=== PATIENT | female | born 1940 | race Caucasian/White ===

== ENCOUNTER 2019-02-01 20:01 | Emergency (ER) | payer OTHER, MEDICARE ==
[2019-02-01 20:24] VITALS: BP 197/76; PULSE 74; TEMP 97.7; BMI 19.5
--- NOTE | 2019-02-01 21:15 | PDOC ---
Documentation entered by Meron Campbell SCRIBE, acting as scribe for Julian Kinney MD. Julian Kinney MD: This documentation has been prepared by the Adrian del cid Brenda, SCRIBE, under my direction and personally reviewed by me in its entirety. I confirm that the documentation accurately reflects all work , treatment, procedures, and medical decision making performed by me. History of Present Illness - General Chief Complaint: Blood Sugar Problem Stated Complaint: LOW BLOOD SUGAR History Source: Sibling Exam Limitations: No Limitations - History of Present Illness Initial Comments: 02/01/19 21:11 The patient is a 78 year old female, with a significant PMH of DM and hypotension, who presents to the emergency department [facility], with lightheadedness and confusion due to low blood sugar. As per sister, on the bedside, the patient was in emotional distress, at which time the sister had left her alone and when she came back, the patient was dazed and confused, prompting the sister to call EMS. As per family, the patient has been eating regular meals today, and took her insulin regularly. The patient reports having sugars up to 300 today, at which point she took her medication, without meals and it lowered to 200, where she took her medication again. She also notes that , she is usually constipated, which she takes miralax for, however she had watery diarrhea a few days ago, and went back to being constipated. As per EMS< her sugar was down to 20, at which point they gave her dextrose and it lowered to the 100s. The patient denies chest pain, shortness of breath, headache and dizziness. Denies fever, chills, nausea, vomiting, diarrhea and constipation. Denies dysuria, frequency, urgency and hematuria. PAST MEDICAL HISTORY: DM, Hypotension and constipation. Recent hospitalization for hyperglycemia and hypertension. PAST SURGICAL HISTORY: 2 stents (5 years and 2 years ago) FAMILY HISTORY: no pertinent history SOCIAL HISTORY: History of tobacco use, current use. MEDICATIONS: reviewed ALLERGIES: As per nursing notes PCP:Dr. Porter General: No fevers or chills, no weakness, no weight loss HEENT: (+) Lightheadedness. (+) Confusion. No change in vision. No sore throat, . No ear pain CardioVascular: No chest pain or shortness of breath Respiratory:No cough, or wheezing. Gastrointestinal: no nausea, vomiting, diarrhea or constipation, No rectal bleeding Genitourinary: No dysuria, hematuria, or frequency Musculoskeletal: No joint or muscle pain or swelling Neurologic: No headache, vertigo, dizziness or loss of consciousness Psychiatric: nor depression Skin: No rashes or easy bruising Endocrine: no increased thirst or abnormal weight change Allergic: no skin or latex allergy All other systems reviewed and normal General: Well-nourished well-developed individual, no acute distress HEENT: Throat: Normal, tonsils normal, no erythema or exudate Neck: Supple, no meningeal signs, no lymphadenopathy Eyes::Pupils equal reactive and round, extraocular motion intact Chest: Nontender to palpation Cardiac: S1-S2 normal, regular rate and rhythm, no murmurs rubs or gallops Respiratory: Lungs clear to auscultation bilateral Abdomen: Soft, nondistended, normal bowel sounds, nontender to palpation diffusely Extremities: Warm, dry, no cyanosis, clubbing, or edema Skin: No rashes Neuro: Alert and oriented x3, nonfocal exam, grossly intact, normal gait Psych: Normal mood and affect 02/01/19 21:12 Assessment and plan: This is a 78-year-old female who comes in with a hypoglycemic episode. Patient became confused at home and EMS was called when they got there her sugars were in the 20s they gave her dextrose with improvement of symptoms and brought her in for evaluation. Patient said her sugars have been running high so she took extra Levemir and NovoLog at 3:30 this afternoon. sugar here in the ED was 85 patient ate a full meal felt much better. It is now been almost 7 hours since she took her insulin the NovoLog will have peaked and worn off the Levemir will have peaked so repeat sugar was patient was discharged marichuy. Past History - Past Medical History Allergies/Adverse Reactions: Allergies Allergy/AdvReac Type Severity Reaction Status Date / Time No Known Allergies Allergy Verified 02/01/19 20:02 Home Medications: Ambulatory Orders Atorvastatin Ca [Lipitor] 80 mg PO HS 02/01/19 Bupropion HCl [Wellbutrin Xl -] 150 mg PO DAILY 02/01/19 Bupropion HCl [Wellbutrin Xl -] 300 mg PO DAILY 02/01/19 Calcium Carbonate [Calcium] 600 mg PO BID 02/01/19 Clonazepam 1 mg PO BID 02/01/19 Insulin (Levemir) [Levemir Vial] 0 unit SQ DAILY 02/01/19 Insulin (Novolog) [Novolog] 0 units SQ BID 02/01/19 Labetalol HCl [Normodyne -] 100 mg PO BID 02/01/19 Zolpidem Tartrate [Ambien] 10 mg PO HS 02/01/19 *Physical Exam - Vital Signs Last Vital Signs Temp Pulse Resp BP Pulse Ox 97.7 F 74 17 197/76 H 99 02/01/19 20:02 02/01/19 20:02 02/01/19 20:02 02/01/19 20:02 02/01/19 20:02 ED Treatment Course - ADDITIONAL ORDERS Additional order review: Laboratory Results 02/01/19 20:10 POC Glucometer 85 02/01/19 20:10 POC Glucometer 85 *DC/Admit/Observation/Transfer Diagnosis at time of Disposition: Hypoglycemia - Discharge Dispostion Disposition: HOME Condition at time of disposition: Stable Decision to Admit order: No - Referrals Referrals: Zachary Porter MD [Primary Care Provider] - - Patient Instructions Printed Discharge Instructions: DI for Hypoglycemia Additional Instructions: Return to the emergency department immediately with ANY new, persistent or worsening symptoms. Continue any medications as previously prescribed by your physician. You should follow up with your primary doctor as soon as possible regarding today's emergency department visit. . Please make sure your doctor reviews the results of your emergency evaluation. Thank you for coming to the Emergency Department today for your care. It was a pleasure to see you today. Please note that your evaluation is INCOMPLETE until you follow-up with your doctor. - Post Discharge Activity
--- NOTE | 2019-02-02 11:49 | EKG ---
Test Reason : Blood Pressure : / mmHG Vent. Rate : 074 BPM Atrial Rate : 074 BPM P-R Int : 170 ms QRS Dur : 088 ms QT Int : 406 ms P-R-T Axes : 067 069 091 degrees QTc Int : 450 ms NORMAL SINUS RHYTHM POSSIBLE LEFT ATRIAL ENLARGEMENT ANTEROSEPTAL INFARCT , AGE UNDETERMINED ABNORMAL ECG NO PREVIOUS ECGS AVAILABLE Confirmed by ANGELICA BENTLEY, SUSIE ([id number]) on 02/02/2019 11:49:26 AM Referred By: DR CLARK Confirmed By:SUSIE DOMINGUEZ MD
== END 2019-02-01 21:20 | disposition home or self-care (01) ==
LOC: FER 20:01
DX: E11.649 Type 2 diabetes mellitus with hypoglycemia without coma (principal); I95.9 Hypotension, unspecified
CPT/HCPCS: 82962; 93005; 99281-25

== ENCOUNTER 2019-02-28 09:45 | Observation (INO) | payer OTHER, MEDICARE ==
--- NOTE | 2019-02-28 10:12 | PDOC ---
History of Present Illness <Larisa Brothers - Last Filed: 02/28/19 13:28> - History of Present Illness Initial Comments: Carolyne Maldonado is a 78yo woman with a PMH of IDDM and hypotension who presents following a fall at home overnight; she was also noted to be hypoglycemic to the 50's. She reports that she woke up overnight to use the bathroom, which is nearby her bed. She successfully walked to the bathroom, but she states that she woke up on the floor sometime later on the floor. She does not remember falling and is not sure what happened. She started calling for her sister for help; the sister called EMS immediately. When EMS arrived, they noted that Ms Maldonado's blood sugar was in the 50's. She was given peanut butter and juice with improvement in her glucose to 137 on arriaal to the ED. Ms Maldonado states that she does not have any head pain or any other apparent injury from her fall. She is not sure how long she was on the ground, but she reports that she needed to use the bathroom again when she woke up, so she thinks it must have been a significant amount of time. She additionally reports that she has been shivering since she woke, though she thinks this might be because she was chilled from being on the floor. She denies any recent cough, congestion, fever, nausea/vomiting, or changes in bowel habits but she does note that she has frequent urination. This has been for several months but she has urgency over the past few weeks which is new. <Citlali Navarrete - Last Filed: 02/28/19 16:01> - General Chief Complaint: Blood Sugar Problem Stated Complaint: LOW BLOOD SUGAR Time Seen by Provider: 02/28/19 10:05 Past History <Larisa Brothers - Last Filed: 02/28/19 13:28> - Past Medical History COPD: No Diabetes: Yes - Suicide/Smoking/Psychosocial Hx Smoking History: Former smoker Have you smoked in the past 12 months: No If you are a former smoker, when did you quit?: 30YRS Hx Alcohol Use: No Drug/Substance Use Hx: No <Citlali Navarrete - Last Filed: 02/28/19 16:01> - Past Medical History Allergies/Adverse Reactions: Allergies Allergy/AdvReac Type Severity Reaction Status Date / Time No Known Allergies Allergy Verified 02/28/19 10:15 Home Medications: Ambulatory Orders Atorvastatin Ca [Lipitor] 80 mg PO HS 02/01/19 Calcium Carbonate [Calcium] 600 mg PO BID 02/01/19 Clonazepam 1 mg PO BID 02/01/19 Insulin (Levemir) [Levemir Vial] 10 unit SQ DAILY 02/01/19 Insulin (Novolog) [Novolog] 0 units SQ ACHS 02/01/19 Labetalol HCl [Normodyne -] 100 mg PO BID 02/01/19 Zolpidem Tartrate [Ambien] 10 mg PO HS 02/01/19 Aspirin [Aspirin EC] 81 mg PO DAILY 02/28/19 Bupropion HCl [Bupropion HCl Sr] 150 mg PO BID 02/28/19 Insulin Detemir [Levemir Flextouch] 11 unit SQ HS 02/28/19 Sertraline HCl [Zoloft] 25 mg PO DAILY 02/28/19 Review of Systems - Review of Systems Comments:: General: No fevers, no chills, no weight or appetite change, no malaise HEENT: No changes in vision, no changes in hearing, no congestion, no sore throat CV: No chest pain, no palpitations, no LE edema Pulm: No SOB, no cough, no wheezing GI: No nausea or vomiting, no change in bowel habits, no melena : No frequency, no urgency, no dysuria Musc: No back pain, no joint swelling, no recent injury Skin: No rash, no lesions, no erythema Endo: No excessive thirst, no heat/cold intolerance Heme: No unusual bruising or bleeding, no swollen glands Neuro: + syncope, no numbness/tingling, no focal weakness Vasc: No claudication Psych: No recent change in mood, no SI or HI <Citlali Navarrete - Last Filed: 02/28/19 16:01> *Physical Exam - Vital Signs Last Vital Signs Temp Pulse Resp BP Pulse Ox 97.2 F L 86 17 168/55 L 99 02/28/19 12:47 02/28/19 12:47 02/28/19 12:47 02/28/19 12:47 02/28/19 12:47 <Larisa Brothers - Last Filed: 02/28/19 13:28> - Physical Exam Comments: General: In no acute distress. +shivering HEENT: No visible trauma, PERRL, EOMI, MMM, voice normal, normal neck ROM, no posterior neck TTP Cards: RRR, no murmur appreciated Pulm: Comfortable on room air, clear to auscultation bilaterally Abd: Soft, nontender, nondistended Ext: Atraumatic. No LE edema. ROM intact. Strength 5/5 and equal bilaterally Vasc: Extremities WWP. Palpable radial and pedal pulses bilaterally Skin: Normal color, no rashes or lesions Neuro: A&Ox3, CN grossly intact, normal speech, motor/sensory grossly intact and symmetric Psych: Mood appropriate to situation <Citlali Navarrete - Last Filed: 02/28/19 16:01> ED Treatment Course - LABORATORY CBC & Chemistry Diagram: 02/28/19 12:15 02/28/19 12:15 - ADDITIONAL ORDERS Additional order review: Laboratory Results 02/28/19 02/28/19 02/28/19 12:15 12:15 12:15 PT with INR 11.5 INR 1.03 PTT (Actin FS) 23.9 L Sodium 139 Potassium 4.5 Chloride 99 Carbon Dioxide 29 Anion Gap 11 BUN 30.0 H Creatinine 0.9 Est GFR (CKD-EPI)AfAm 71.48 Est GFR (CKD-EPI)NonAf 61.67 POC Glucometer Random Glucose 231 H Calcium 9.4 Total Bilirubin 1.1 H AST 35 ALT 30 Alkaline Phosphatase 69 Total Protein 7.1 Albumin 4.4 Urine Color Urine Appearance Urine pH Urine Protein Urine Glucose (UA) Urine Ketones Urine Blood Urine Nitrite Urine Bilirubin Urine Urobilinogen Ur Leukocyte Esterase Urine RBC Urine WBC Ur Transition Epith Cell Urine Bacteria 02/28/19 02/28/19 11:20 10:00 PT with INR INR PTT (Actin FS) Sodium Potassium Chloride Carbon Dioxide Anion Gap BUN Creatinine Est GFR (CKD-EPI)AfAm Est GFR (CKD-EPI)NonAf POC Glucometer 132 Random Glucose Calcium Total Bilirubin AST ALT Alkaline Phosphatase Total Protein Albumin Urine Color Yellow Urine Appearance Clear Urine pH 7.0 Urine Protein Trace Urine Glucose (UA) Negative Urine Ketones Trace Urine Blood Trace-intact Urine Nitrite Negative Urine Bilirubin Negative Urine Urobilinogen 1.0 Ur Leukocyte Esterase Negative Urine RBC 2-5 Urine WBC 0-2 Ur Transition Epith Cell Few Urine Bacteria Few 02/28/19 02/28/19 12:15 10:00 RBC 4.04 MCV 93.2 MCHC 33.3 RDW 12.5 MPV 7.7 Neutrophils % 85.2 H Lymphocytes % 9.6 Monocytes % 4.4 Eosinophils % 0.2 Basophils % 0.6 POC Glucometer 132 <Larisa Brothers - Last Filed: 02/28/19 13:28> - LABORATORY CBC & Chemistry Diagram: 02/28/19 12:15 02/28/19 12:15 - ADDITIONAL ORDERS Additional order review: Laboratory Results 02/28/19 10:00 POC Glucometer 132 02/28/19 10:00 POC Glucometer 132 <Citlali Navarrete - Last Filed: 02/28/19 16:01> Medical Decision Making - Medical Decision Making 02/28/19 10:41 Carolyne Maldonado is a 78yo woman with a PMH of IDDM and hypotension who presents following apparent syncope and an unwitnessed fall overnight. She was also noted to be hypoglycemic to the 50's on EMS arrival. She currently denies any injury or symptoms other than shivering. - Apparent syncopal episode, possibly due to hypoglycemia. - Currently shivering either due to mild hypothermia or possibly sepsis given new urinary complaint - Septic workup sent - CT head to evaluate for intracranial injury 02/28/19 12:17 - UA negative - CXR and CT completed. No acute abnormalities noted - Labs drawn, sent. Results pending 02/28/19 13:51 - Labs reviewed. Notable for negative but detectable trop at 0.03. - Otherwise no concerning abnormalities. Glucose now over 200. - UA negative - Plan to admit for syncope Discussed with Dr Brothers. Citlali Navarrete PGY2 <Citlali Navarrete - Last Filed: 02/28/19 16:01> *DC/Admit/Observation/Transfer - Discharge Dispostion Decision to Admit order: Yes <Larisa Brothers - Last Filed: 02/28/19 13:28> <Citlali Navarerte - Last Filed: 02/28/19 16:01> Diagnosis at time of Disposition: Syncope, Hypoglycemia - Discharge Dispostion Condition at time of disposition: Good - Referrals Referrals: Zachary Porter MD [Primary Care Provider] - - Patient Instructions - Post Discharge Activity
--- NOTE | 2019-02-28 10:38 | PDOC ---
Attending Attestation - Resident Resident Name: AlejandrorosioCitlali - ED Attending Attestation I have performed the following: I have examined & evaluated the patient, The case was reviewed & discussed with the resident, I agree w/resident's findings & plan, Exceptions are as noted - HPI HPI: 02/28/19 12:12 78 yo F w h/o htn, DM, prior orthostatic hypotension, here with syncopal episode. pt states she got up to go to bathroom in middle of night, subsequently awoke on the floor this am, unsure of exact time. was unable to get up. normally walks with a cane. felt disoriented. called out for her sister whom she lives with and her sister came, called ambulance, on ambulance arrival, pt sugar found to be 50. was given juice by EMS. denies precipitating chest pain or palpitations. unsure of how long she was on the floor. states last pm prior to going to bed sugar was 118. pt states she has lost a lot of weight over last few months while she was hospitalized and in [facility], is currently staying with her sister until she is scheduled. to go home in one week. no fever, but does have chills. denies recent focal weakness. states also has h/o orthostatic hypotension and her labetalol was changed recently from 200 bid to 100 bid. no change to vision or speech. denies urinary sxs. no n/v. 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 had stress test many years ago. no h/o mi or cva. father with mi in his 40's meds: Atorvastatin Ca [Lipitor] 80 mg PO HS 02/01/19 Bupropion HCl [Wellbutrin Xl -] 150 mg PO DAILY 02/01/19 Bupropion HCl [Wellbutrin Xl -] 300 mg PO DAILY 02/01/19 Calcium Carbonate [Calcium] 600 mg PO BID 02/01/19 Clonazepam 1 mg PO BID 02/01/19 Insulin (Levemir) [Levemir Vial] 0 unit SQ DAILY 02/01/19 Insulin (Novolog) [Novolog] 0 units SQ BID 02/01/19 Labetalol HCl [Normodyne -] 100 mg PO BID 02/01/19 Zolpidem Tartrate [Ambien] 10 mg PO HS 02/01/19 02/28/19 12:18 - Physicial Exam PE: 02/28/19 12:19 awake alert lungs clear bilat heart rrr no mrg abd soft nt nd ext wwp no edema. no calf tenderness. nuero speech clear. CN ii - XII intact. strength upper eext 5/5 lower ext right leg 4+/ 5, left leg 5/5. sensatio intact throughout. - Medical Decision Making 02/28/19 10:37 78 yo F with h/o DM here with hypoglycemic episode. syncope. unclear if syncope related to low blood sugar. differential orthostatic hypotension, vasovagal, dysrhtymia, dehdyration, anemia. infection such as uti. plan cxr ekg labs trop ua, iv hydration. pt hypoglycemic prior to arrival. is on long acting insuline. will require monitoring for hypoglycemia and syncope. second hypoglycemic episode pt was seen for same in january 2019. 02/28/19 12:19 02/28/19 13:53 pt labs unremarakble. cxr negative. ekg with left axis, mild LVH otherwise no st elevation or depression. ua negative for infection. plan to admit for hypoglycemia as pt on long acting agent. and concerns for syncope. Heart Score/ECG Review #1 General ECG Interpretation: Sinus Rhythm, Normal Rate (78), Normal Intervals, No acute ischemic changes - [place]: Left [place] Deviation NIH Stroke Scale - Initial Evaluation Level of consciousness: Alert Ask patient the month and their age: Answers both correctly Ask patient to open & close eyes; make fist and let go: Obeys both correctly Best gaze (horizontal eye movement): Normal Visual field testing: No visual field loss Facial paresis (Show teeth/raise eyebrows/close eyes tight): Normal symmetrical movement Motor Function: Left Arm: Normal Motor Function: Right Arm: Normal (extends arm 90 (or 45) degrees for 10 seconds without drift Motor Function: Left Leg: Normal (extends leg 30 degrees for 5 seconds without drift) Motor Function: Right Leg: Drift Limb Ataxia: No ataxia Sensory(Use pinprick test arms,legs,trunk,face/side to side): Normal Best language (Describe picture, name items, read sentences): No Aphasia Dysarthria (read several words): Normal articulation Extinction and Inattention: No abnormality - Total Score NIH Stroke Scale Score: 1
[2019-02-28 11:45] LABS: EPITHELIAL CELLS FEW /hpf
[2019-02-28 12:45] LABS: BASO % 0.6 % (0-2.0); EOS % 0.2 % (0-4.5); HEMATOCRIT 37.7 % (32.4-45.2); HEMOGLOBIN 12.5 GM/dl (10.7-15.3); LYMPH % 9.6 % (8-40); MCHC 33.3 g/dl (32.0-36.0); MEAN CELL VOLUME 93.2 fl (80-96); MEAN PLT VOLUME 7.7 fl (7.5-11.1); MONO % 4.4 % (3.8-10.2); NEUT % 85.2 % (42.8-82.8); PLATELET COUNT 244 K/MM3 (134-434); RBC 4.04 M/mm3 (3.60-5.2); RDW 12.5 % (11.6-15.6); WHITE BLOOD COUNT 6.9 K/mm3 (4.0-10.8)
[2019-02-28 12:51] LABS: ALBUMIN 4.4 g/dl (3.4-5.0); BILIRUBIN,TOTAL 1.1 mg/dl (0.2-1); CALCIUM 9.4 mg/dl (8.5-10); CREATININE 0.9 mg/dl (0.55-1.3); POTASSIUM 4.5 mmol/L (3.5-5.1); TOT PROT 7.1 g/dl (6.4-8.2)
[2019-02-28 12:59] LABS: INR 1.03 (0.82-1.09); PROTHROMBIN TIME (PATIENT) 11.5 SEC (10.2-13.0)
[2019-02-28 13:34] LABS: VENOUS PC02 54.7 mmHg (38-52); VENOUS PH 7.36 (7.31-7.41)
[2019-02-28 13:36] LABS: VENOUS PO2 < 49 mmHg (28-48)
--- NOTE | 2019-02-28 14:10 | HP ---
CHIEF COMPLAINT: Syncope PCP: Dr. Zachary Porter HISTORY OF PRESENT ILLNESS: This is a 78 year-old female with a PMH significant for CAD s/p stents x 2, Type II IDDM, and orthostatic hypotension. Presented to the ED today after waking up on her bedroom floor. Patient did a fingerstick before bedtime and it was slightly low for her 118. She considered drinking some juice, but deferred and went to bed. She woke up during the night, went to the bathroom, urinated, and the next thing she remembers is waking up on the floor. She does not remember falling and she does not know how long she was on the floor. She called to her sister for help. The sister called EMS and when EMS arrived, patient's blood sugar was in the 50s. She was given peanut butter and juice with improvement in her glucose to 137 on arrival to the ED. Patient was seen in [facility] on 02/01/19 for a similar episode and was found to be hypoglycemic. Patient denies recent illness. Denies fever, sweats, chills. Denies nausea, vomiting, diarrhea. Complains of frequent urination for several months, and urgency for several weeks. ER course was notable for: (1) Troponin neg x 1 (2) FS 137 on arrival Recent Travel: No PAST MEDICAL HISTORY: Type II IDDM Orthostatic hypotension PAST SURGICAL HISTORY: Social History: Smoking: Alcohol: Drugs: Family History: Allergies No Known Allergies Allergy (Verified 02/28/19 10:15) HOME MEDICATIONS: Home Medications Medication Instructions Recorded Atorvastatin Ca [Lipitor] 80 mg PO HS 02/01/19 Calcium Carbonate [Calcium] 600 mg PO BID 02/01/19 Clonazepam 1 mg PO BID 02/01/19 Insulin (Levemir) [Levemir Vial] 10 unit SQ DAILY 02/01/19 Insulin (Novolog) [Novolog] 0 units SQ ACHS 02/01/19 Labetalol HCl [Normodyne -] 100 mg PO BID 02/01/19 Zolpidem Tartrate [Ambien] 10 mg PO HS 02/01/19 Aspirin [Aspirin EC] 81 mg PO DAILY 02/28/19 Bupropion HCl [Bupropion HCl Sr] 150 mg PO BID 02/28/19 Insulin Detemir [Levemir Flextouch] 11 unit SQ HS 02/28/19 Sertraline HCl [Zoloft] 25 mg PO DAILY 02/28/19 REVIEW OF SYSTEMS CONSTITUTIONAL: Absent: fever, chills, diaphoresis, generalized weakness, malaise, loss of appetite, weight change HEENT: Absent: rhinorrhea, nasal congestion, throat pain, throat swelling, difficulty swallowing, mouth swelling, ear pain, eye pain, visual changes CARDIOVASCULAR: Absent: chest pain, syncope, palpitations, irregular heart rate, lightheadedness , peripheral edema RESPIRATORY: Absent: cough, shortness of breath, dyspnea with exertion, orthopnea, wheezing, stridor, hemoptysis GASTROINTESTINAL: Absent: abdominal pain, abdominal distension, nausea, vomiting, diarrhea, constipation, melena, hematochezia GENITOURINARY: Absent: dysuria, frequency, urgency, hesitancy, hematuria, flank pain, genital pain MUSCULOSKELETAL: Absent: myalgia, arthralgia, joint swelling, back pain, neck pain SKIN: Absent: rash, itching, pallor HEMATOLOGIC/IMMUNOLOGIC: Absent: easy bleeding, easy bruising, lymphadenopathy, frequent infections ENDOCRINE: Absent: unexplained weight gain, unexplained weight loss, heat intolerance, cold intolerance NEUROLOGIC: Absent: headache, focal weakness or paresthesias, dizziness, unsteady gait, seizure, mental status changes, bladder or bowel incontinence PSYCHIATRIC: Absent: anxiety, depression, suicidal or homicidal ideation, hallucinations. PHYSICAL EXAMINATION Vital Signs - 24 hr 02/28/19 02/28/19 02/28/19 09:55 10:58 12:47 Temperature 97.4 F L 96.5 F L 97.2 F L Pulse Rate 75 Pulse Rate [ 86 Apical] Respiratory 18 17 Rate Blood Pressure 220/80 H Blood Pressure 168/55 L [Right Arm] O2 Sat by Pulse 99 Oximetry (%) 02/28/19 13:30 Temperature Pulse Rate Pulse Rate [ 88 Apical] Respiratory 16 Rate Blood Pressure Blood Pressure 109/76 [Right Arm] O2 Sat by Pulse 99 Oximetry (%) GENERAL: Awake, alert, and fully oriented, in no acute distress. HEAD: Normal with no signs of trauma. EYES: Pupils equal, round and reactive to light, extraocular movements intact, sclera anicteric, conjunctiva clear. No lid lag. EARS, NOSE, THROAT: Ears normal, nares patent, oropharynx clear without exudates. Moist mucous membranes. NECK: Normal range of motion, supple without lymphadenopathy, JVD, or masses. LUNGS: Breath sounds equal, clear to auscultation bilaterally. No wheezes, and no crackles. No accessory muscle use. HEART: Regular rate and rhythm, normal S1 and S2 without murmur, rub or gallop. ABDOMEN: Soft, nontender, not distended, normoactive bowel sounds, no guarding, no rebound, no masses. No hepatomegaly or splenomegaly. MUSCULOSKELETAL: Normal range of motion at all joints. No bony deformities or tenderness. No CVA tenderness. UPPER EXTREMITIES: 2+ pulses, warm, well-perfused. No cyanosis. No clubbing. No peripheral edema. LOWER EXTREMITIES: 2+ pulses, warm, well-perfused. No calf tenderness. No peripheral edema. NEUROLOGICAL: Cranial nerves II-XII intact. Normal speech. Normal gait. PSYCHIATRIC: Cooperative. Good eye contact. Appropriate mood and affect. SKIN: Warm, dry, normal turgor, no rashes or lesions noted, normal capillary refill. Laboratory Results - last 24 hr 02/28/19 02/28/19 02/28/19 10:00 10:56 11:20 WBC RBC Hgb Hct MCV MCH MCHC RDW Plt Count MPV Absolute Neuts (auto) Neutrophils % Lymphocytes % Monocytes % Eosinophils % Basophils % PT with INR INR PTT (Actin FS) VBG pH 7.36 POC VBG pCO2 54.7 H POC VBG pO2 < 49 H VBG HCO3 29.8 H VBG O2 Sat (Yonis) 30.1 L VBG Base Excess 3.6 H Sodium Potassium Chloride Carbon Dioxide Anion Gap BUN Creatinine Est GFR (CKD-EPI)AfAm Est GFR (CKD-EPI)NonAf POC Glucometer 132 Random Glucose Hemoglobin A1c % Lactic Acid Calcium Total Bilirubin AST ALT Alkaline Phosphatase Creatine Kinase Troponin I Total Protein Albumin Urine Color Yellow Urine Appearance Clear Urine pH 7.0 Urine Protein Trace Urine Glucose (UA) Negative Urine Ketones Trace Urine Blood Trace-intact Urine Nitrite Negative Urine Bilirubin Negative Urine Urobilinogen 1.0 Ur Leukocyte Esterase Negative Urine RBC 2-5 Urine WBC 0-2 Ur Transition Epith Cell Few Urine Bacteria Few 02/28/19 02/28/19 02/28/19 12:15 12:15 12:15 WBC 6.9 RBC 4.04 Hgb 12.5 Hct 37.7 MCV 93.2 MCH 31.0 MCHC 33.3 RDW 12.5 Plt Count 244 MPV 7.7 Absolute Neuts (auto) 5.9 Neutrophils % 85.2 H Lymphocytes % 9.6 Monocytes % 4.4 Eosinophils % 0.2 Basophils % 0.6 PT with INR INR PTT (Actin FS) 23.9 L VBG pH POC VBG pCO2 POC VBG pO2 VBG HCO3 VBG O2 Sat (Yonis) VBG Base Excess Sodium 139 Potassium 4.5 Chloride 99 Carbon Dioxide 29 Anion Gap 11 BUN 30.0 H Creatinine 0.9 Est GFR (CKD-EPI)AfAm 71.48 Est GFR (CKD-EPI)NonAf 61.67 POC Glucometer Random Glucose 231 H Hemoglobin A1c % Lactic Acid Calcium 9.4 Total Bilirubin 1.1 H AST 35 ALT 30 Alkaline Phosphatase 69 Creatine Kinase Troponin I Total Protein 7.1 Albumin 4.4 Urine Color Urine Appearance Urine pH Urine Protein Urine Glucose (UA) Urine Ketones Urine Blood Urine Nitrite Urine Bilirubin Urine Urobilinogen Ur Leukocyte Esterase Urine RBC Urine WBC Ur Transition Epith Cell Urine Bacteria 02/28/19 02/28/19 02/28/19 12:15 12:15 12:15 WBC RBC Hgb Hct MCV MCH MCHC RDW Plt Count MPV Absolute Neuts (auto) Neutrophils % Lymphocytes % Monocytes % Eosinophils % Basophils % PT with INR 11.5 INR 1.03 PTT (Actin FS) VBG pH POC VBG pCO2 POC VBG pO2 VBG HCO3 VBG O2 Sat (Yonis) VBG Base Excess Sodium Potassium Chloride Carbon Dioxide Anion Gap BUN Creatinine Est GFR (CKD-EPI)AfAm Est GFR (CKD-EPI)NonAf POC Glucometer Random Glucose Hemoglobin A1c % Lactic Acid 1.4 Calcium Total Bilirubin AST ALT Alkaline Phosphatase Creatine Kinase Troponin I < 0.03 Total Protein Albumin Urine Color Urine Appearance Urine pH Urine Protein Urine Glucose (UA) Urine Ketones Urine Blood Urine Nitrite Urine Bilirubin Urine Urobilinogen Ur Leukocyte Esterase Urine RBC Urine WBC Ur Transition Epith Cell Urine Bacteria 02/28/19 02/28/19 12:15 12:15 WBC RBC Hgb Hct MCV MCH MCHC RDW Plt Count MPV Absolute Neuts (auto) Neutrophils % Lymphocytes % Monocytes % Eosinophils % Basophils % PT with INR INR PTT (Actin FS) VBG pH POC VBG pCO2 POC VBG pO2 VBG HCO3 VBG O2 Sat (Yonis) VBG Base Excess Sodium Potassium Chloride Carbon Dioxide Anion Gap BUN Creatinine Est GFR (CKD-EPI)AfAm Est GFR (CKD-EPI)NonAf POC Glucometer Random Glucose Hemoglobin A1c % 7.5 H Lactic Acid Calcium Total Bilirubin AST ALT Alkaline Phosphatase Creatine Kinase 234 H Troponin I Total Protein Albumin Urine Color Urine Appearance Urine pH Urine Protein Urine Glucose (UA) Urine Ketones Urine Blood Urine Nitrite Urine Bilirubin Urine Urobilinogen Ur Leukocyte Esterase Urine RBC Urine WBC Ur Transition Epith Cell Urine Bacteria ASSESSMENT/PLAN This is a 78 year-old female with a PMH significant for CAD s/p stents x 2, Type II IDDM, and orthostatic hypotension. Syncope --troponin neg x 1, two pending; ECG: ; telemetry monitoring; echo ordered --CT head unremarkable --afebrile, no leukocytosis; CXR unremarkable; UA negative; cultures pending ; observe off antibiotics Low volume state --BUN elevated --CPK elevated --check orthostatics --IV fluids if indicated Type II IDDM --has had several recent episodes of hypoglycemia --A1C 7.5 --Novolog sliding scale coverage Coronary artery disease s/p stents --continue ASA, Lipitor, labetolol Depression --continue Wellbutrin, clonazepam, sertraline FEN Fluids: Electrolytes: replete as indicated Nutrition: diabetic DVT prophylaxis: subq heparin Physical therapy Dispo: continues to require observation. Full code. Visit type - Emergency Visit Emergency Visit: Yes ED Registration Date: 02/28/19 Care time: The patient presented to the Emergency Department on the above date and was hospitalized for further evaluation of their emergent condition. - New Patient This patient is new to me today: Yes Date on this admission: 03/01/19 - Critical Care Critical Care patient: No
[2019-02-28] MEDS: INSULIN (NOVOLOG) ASPART 100 UNITS/ML 10ML VIAL SQ SCH ×2 (16:30→21:46)
[2019-02-28 16:54] VITALS: BMI 18.6
[2019-02-28] MEDS: HEPARIN NA (PORCINE) 5,000 UNITS/ML 1ML VIAL SQ SCH (17:09)
[2019-02-28] MEDS: ASPIRIN COATED 81 MG TABLET.EC PO SCH (17:09)
[2019-02-28] MEDS: SERTRALINE HCL 25 MG TABLET (FP) PO SCH (17:09)
[2019-02-28] MEDS: ATORVASTATIN CA 80 MG TABLET (FP) PO SCH (21:16)
[2019-02-28] MEDS: clonazePAM 0.5 MG TABLET PO SCH (21:17)
[2019-02-28] MEDS ORDERED: INSULIN (NOVOLOG) ASPART 100 UNITS/ML 10ML VIAL SQ ONE (21:26)
[2019-02-28] MEDS ORDERED: PATIENT'S OWN MEDICATION (NON-FORMULARY) (Bupropion Hcl [Bupropion Hcl Sr] 150 MG) PO SCH (22:00)
[2019-02-28] MEDS ORDERED: INSULIN (LEVEMIR) 100 UNITS/ML UNITS SQ SCH (22:00)
[2019-02-28] MEDS ORDERED: LABETALOL HCL 100 MG TABLET (FP) PO SCH (22:00)
[2019-02-28] MEDS ORDERED: PATIENT'S OWN MEDICATION (NON-FORMULARY) (Clonazepam [Clonazepam] 1 MG) PO SCH (22:00)
[2019-02-28 23:15] LABS: CALCIUM 8.9 mg/dl (8.5-10); CREATININE 1.5 mg/dl (0.55-1.3); MAGNESIUM 2.1 mg/dL (1.8-2.4); POTASSIUM 4.2 mmol/L (3.5-5.1)
[2019-02-28] MEDS ORDERED: SODIUM CHLORIDE 1,000 ML IV STA (23:29)
[2019-02-28] MEDS ORDERED: SODIUM CHLORIDE 1,000 ML IV SCH (23:30)
[2019-02-28] MEDS ORDERED: Insulin (LOG) Aspart 100 UNITS/ML VIAL SQ STA (23:45)
[2019-03-01] MEDS: HEPARIN NA (PORCINE) 5,000 UNITS/ML 1ML VIAL SQ SCH ×3 (01:38→17:58)
[2019-03-01 02:09] LABS: PHOSPHOROUS 3.3 mg/dL (2.5-4.9); URIC ACID 6.2 mg/dL (2.6-7.2)
[2019-03-01] MEDS ORDERED: Insulin (LOG) Aspart 100 UNITS/ML VIAL SQ SCH (07:00)
[2019-03-01 08:01] LABS: BASO % 0.7 % (0-2.0); HEMATOCRIT 29.5 % (32.4-45.2); HEMOGLOBIN 9.8 GM/dl (10.7-15.3); LYMPH % 25.6 % (8-40); MCH 31.2 pg (25.7-33.7); MCHC 33.2 g/dl (32.0-36.0); MEAN CELL VOLUME 93.9 fl (80-96); MEAN PLT VOLUME 8.1 fl (7.5-11.1); MONO % 9.3 % (3.8-10.2); NEUT % 63.4 % (42.8-82.8); PLATELET COUNT 193 K/MM3 (134-434); RBC 3.15 M/mm3 (3.60-5.2); RDW 12.7 % (11.6-15.6); WHITE BLOOD COUNT 4.8 K/mm3 (4.0-10.8)
[2019-03-01 08:07] LABS: ALBUMIN 3.2 g/dl (3.4-5.0); BILIRUBIN,TOTAL 0.8 mg/dl (0.2-1); CALCIUM 8.2 mg/dl (8.5-10); MAGNESIUM 1.9 mg/dL (1.8-2.4); TOT PROT 5.2 g/dl (6.4-8.2)
[2019-03-01] MEDS: INSULIN (NOVOLOG) ASPART 100 UNITS/ML 10ML VIAL SQ SCH ×4 (08:58→21:41)
[2019-03-01] MEDS: clonazePAM 0.5 MG TABLET PO SCH ×2 (09:28→21:41)
[2019-03-01] MEDS: ASPIRIN COATED 81 MG TABLET.EC PO SCH (09:28)
--- NOTE | 2019-03-01 09:38 | EKG ---
Test Reason : Blood Pressure : / mmHG Vent. Rate : 078 BPM Atrial Rate : 078 BPM P-R Int : 150 ms QRS Dur : 090 ms QT Int : 392 ms P-R-T Axes : 072 070 070 degrees QTc Int : 446 ms NORMAL SINUS RHYTHM POSSIBLE LEFT ATRIAL ENLARGEMENT ANTEROSEPTAL INFARCT (CITED ON OR BEFORE 01-FEB-2019) ABNORMAL ECG WHEN COMPARED WITH ECG OF 01-FEB-2019 20:22, T WAVE INVERSION NO LONGER EVIDENT IN ANTERIOR LEADS Confirmed by Dylon Romero MD ([id number]) on 03/01/2019 9:38:40 AM Referred By: MD CARTY Confirmed By:Dylon Romero MD
[2019-03-01] MEDS: SERTRALINE HCL 25 MG TABLET (FP) PO SCH (10:00)
--- NOTE | 2019-03-01 13:27 | PN ---
Physical Exam: SUBJECTIVE: Patient seen and examined OBJECTIVE: Vital Signs Period Temp Pulse Resp BP Sys/Tolliver Pulse Ox Last 24 Hr 98.0 F-98.5 F 82-106 16-18 86-177/30-76 94-100 GENERAL: The patient is awake, alert, and fully oriented, in no acute distress. HEAD: Normal with no signs of trauma. EYES: PERRL, extraocular movements intact, sclera anicteric, conjunctiva clear. No ptosis. ENT: Ears normal, nares patent, oropharynx clear without exudates, moist mucous membranes. NECK: Trachea midline, full range of motion, supple. LUNGS: Breath sounds equal, clear to auscultation bilaterally, no wheezes, no crackles, no accessory muscle use. HEART: Regular rate and rhythm, S1, S2 without murmur, rub or gallop. ABDOMEN: Soft, nontender, nondistended, normoactive bowel sounds, no guarding, no rebound, no hepatosplenomegaly, no masses. EXTREMITIES: 2+ pulses, warm, well-perfused, no edema. NEUROLOGICAL: Cranial nerves II through XII grossly intact. Normal speech, gait not observed. PSYCH: Normal mood, normal affect. SKIN: Warm, dry, normal turgor, no rashes or lesions noted Laboratory Results - last 24 hr 02/28/19 02/28/19 02/28/19 10:56 12:15 12:15 WBC RBC Hgb Hct MCV MCH MCHC RDW Plt Count MPV Absolute Neuts (auto) Neutrophils % Lymphocytes % Monocytes % Eosinophils % Basophils % VBG pH 7.36 POC VBG pCO2 54.7 H POC VBG pO2 < 49 H VBG HCO3 29.8 H VBG O2 Sat (Yonis) 30.1 L VBG Base Excess 3.6 H Sodium Potassium Chloride Carbon Dioxide Anion Gap BUN Creatinine Est GFR (CKD-EPI)AfAm Est GFR (CKD-EPI)NonAf POC Glucometer Random Glucose Hemoglobin A1c % Serum Osmolality Lactic Acid 1.4 Uric Acid Calcium Phosphorus Magnesium Total Bilirubin AST ALT Alkaline Phosphatase Creatine Kinase Creatine Kinase Index CK-MB (CK-2) Troponin I < 0.03 Total Protein Albumin Lipase Urine Osmolality Ur Random Creatinine Ur Random Sodium 02/28/19 02/28/19 02/28/19 12:15 12:15 16:45 WBC RBC Hgb Hct MCV MCH MCHC RDW Plt Count MPV Absolute Neuts (auto) Neutrophils % Lymphocytes % Monocytes % Eosinophils % Basophils % VBG pH POC VBG pCO2 POC VBG pO2 VBG HCO3 VBG O2 Sat (Yonis) VBG Base Excess Sodium Potassium Chloride Carbon Dioxide Anion Gap BUN Creatinine Est GFR (CKD-EPI)AfAm Est GFR (CKD-EPI)NonAf POC Glucometer 272 Random Glucose Hemoglobin A1c % 7.5 H Serum Osmolality Lactic Acid Uric Acid Calcium Phosphorus Magnesium Total Bilirubin AST ALT Alkaline Phosphatase Creatine Kinase 234 H Creatine Kinase Index 5.1 H CK-MB (CK-2) 12.1 H Troponin I Total Protein Albumin Lipase Urine Osmolality Ur Random Creatinine Ur Random Sodium 02/28/19 02/28/19 02/28/19 18:10 21:09 21:11 WBC RBC Hgb Hct MCV MCH MCHC RDW Plt Count MPV Absolute Neuts (auto) Neutrophils % Lymphocytes % Monocytes % Eosinophils % Basophils % VBG pH POC VBG pCO2 POC VBG pO2 VBG HCO3 VBG O2 Sat (Yonis) VBG Base Excess Sodium Potassium Chloride Carbon Dioxide Anion Gap BUN Creatinine Est GFR (CKD-EPI)AfAm Est GFR (CKD-EPI)NonAf POC Glucometer 535 546 Random Glucose Hemoglobin A1c % Serum Osmolality Lactic Acid Uric Acid Calcium Phosphorus Magnesium Total Bilirubin AST ALT Alkaline Phosphatase Creatine Kinase Creatine Kinase Index CK-MB (CK-2) Troponin I 0.03 Total Protein Albumin Lipase Urine Osmolality Ur Random Creatinine Ur Random Sodium 02/28/19 02/28/19 03/01/19 22:45 22:46 00:05 WBC RBC Hgb Hct MCV MCH MCHC RDW Plt Count MPV Absolute Neuts (auto) Neutrophils % Lymphocytes % Monocytes % Eosinophils % Basophils % VBG pH POC VBG pCO2 POC VBG pO2 VBG HCO3 VBG O2 Sat (Yonis) VBG Base Excess Sodium 135 L Potassium 4.2 Chloride 98 Carbon Dioxide 26 Anion Gap 11 BUN 40.0 H Creatinine 1.5 H Est GFR (CKD-EPI)AfAm 38.55 Est GFR (CKD-EPI)NonAf 33.26 POC Glucometer 476 Random Glucose 500 H* Hemoglobin A1c % Serum Osmolality 315 H Lactic Acid Uric Acid 6.2 Calcium 8.9 Phosphorus 3.3 Magnesium 2.1 Total Bilirubin AST ALT Alkaline Phosphatase Creatine Kinase 225 H Creatine Kinase Index 2.0 CK-MB (CK-2) 4.7 H Troponin I Total Protein Albumin Lipase 206 Urine Osmolality Ur Random Creatinine Ur Random Sodium 03/01/19 03/01/19 03/01/19 00:05 00:05 00:05 WBC RBC Hgb Hct MCV MCH MCHC RDW Plt Count MPV Absolute Neuts (auto) Neutrophils % Lymphocytes % Monocytes % Eosinophils % Basophils % VBG pH POC VBG pCO2 POC VBG pO2 VBG HCO3 VBG O2 Sat (Yonis) VBG Base Excess Sodium Potassium Chloride Carbon Dioxide Anion Gap BUN Creatinine Est GFR (CKD-EPI)AfAm Est GFR (CKD-EPI)NonAf POC Glucometer Random Glucose Hemoglobin A1c % Serum Osmolality Lactic Acid 1.9 Uric Acid Calcium Phosphorus Magnesium Total Bilirubin AST ALT Alkaline Phosphatase Creatine Kinase Creatine Kinase Index CK-MB (CK-2) Troponin I Total Protein Albumin Lipase Urine Osmolality 610 Ur Random Creatinine 89.0 Ur Random Sodium 03/01/19 03/01/19 03/01/19 00:05 00:05 01:41 WBC RBC Hgb Hct MCV MCH MCHC RDW Plt Count MPV Absolute Neuts (auto) Neutrophils % Lymphocytes % Monocytes % Eosinophils % Basophils % VBG pH POC VBG pCO2 POC VBG pO2 VBG HCO3 VBG O2 Sat (Yonis) VBG Base Excess Sodium Potassium Chloride Carbon Dioxide Anion Gap BUN Creatinine Est GFR (CKD-EPI)AfAm Est GFR (CKD-EPI)NonAf POC Glucometer 316 Random Glucose Hemoglobin A1c % Serum Osmolality Lactic Acid Uric Acid Calcium Phosphorus Magnesium Total Bilirubin AST ALT Alkaline Phosphatase Creatine Kinase 216 H Creatine Kinase Index 2.3 CK-MB (CK-2) 5.0 H Troponin I 0.04 Total Protein Albumin Lipase Urine Osmolality Ur Random Creatinine Ur Random Sodium 27 L 03/01/19 03/01/19 03/01/19 06:20 07:16 07:16 WBC 4.8 RBC 3.15 L Hgb 9.8 L Hct 29.5 L D MCV 93.9 MCH 31.2 MCHC 33.2 RDW 12.7 Plt Count 193 MPV 8.1 Absolute Neuts (auto) 3.2 Neutrophils % 63.4 Lymphocytes % 25.6 Monocytes % 9.3 Eosinophils % 1.0 Basophils % 0.7 VBG pH POC VBG pCO2 POC VBG pO2 VBG HCO3 VBG O2 Sat (Yonis) VBG Base Excess Sodium 138 Potassium 4.0 Chloride 107 Carbon Dioxide 26 Anion Gap 5 L BUN 33.0 H Creatinine 1.0 Est GFR (CKD-EPI)AfAm 62.93 Est GFR (CKD-EPI)NonAf 54.30 POC Glucometer 256 Random Glucose 261 H Hemoglobin A1c % Serum Osmolality Lactic Acid Uric Acid Calcium 8.2 L Phosphorus Magnesium 1.9 Total Bilirubin 0.8 AST 25 ALT 24 Alkaline Phosphatase 49 D Creatine Kinase Creatine Kinase Index CK-MB (CK-2) Troponin I Total Protein 5.2 L Albumin 3.2 L Lipase Urine Osmolality Ur Random Creatinine Ur Random Sodium 03/01/19 03/01/19 07:16 11:25 WBC RBC Hgb Hct MCV MCH MCHC RDW Plt Count MPV Absolute Neuts (auto) Neutrophils % Lymphocytes % Monocytes % Eosinophils % Basophils % VBG pH POC VBG pCO2 POC VBG pO2 VBG HCO3 VBG O2 Sat (Yonis) VBG Base Excess Sodium Potassium Chloride Carbon Dioxide Anion Gap BUN Creatinine Est GFR (CKD-EPI)AfAm Est GFR (CKD-EPI)NonAf POC Glucometer 229 Random Glucose Hemoglobin A1c % Serum Osmolality Lactic Acid Uric Acid Calcium Phosphorus Magnesium Total Bilirubin AST ALT Alkaline Phosphatase Creatine Kinase 175 Creatine Kinase Index 3.3 CK-MB (CK-2) 5.8 H Troponin I Total Protein Albumin Lipase Urine Osmolality Ur Random Creatinine Ur Random Sodium Active Medications Generic Name Dose Route Start Last Admin Trade Name Freq PRN Reason Stop Dose Admin Aspirin 81 mg 02/28/19 14:45 03/01/19 09:28 Ecotrin - PO 81 mg DAILY OISRIS Administration Atorvastatin Calcium 80 mg 02/28/19 22:00 02/28/19 21:16 Lipitor - PO 80 mg HS OSIRIS Administration Bupropion HCl 300 mg 03/01/19 10:00 03/01/19 09:28 Wellbutrin Xl - PO 300 mg DAILY OSIRIS Administration Clonazepam 1 mg 02/28/19 22:00 03/01/19 09:28 Klonopin - PO 1 mg BID OSIRIS Administration Heparin Sodium (Porcine) 5,000 unit 02/28/19 18:00 03/01/19 09:28 Heparin - SQ 5,000 unit Q8H-IV OSIRIS Administration Sodium Chloride 1,000 mls @ 100 mls/hr 02/28/19 23:30 03/01/19 01:09 Normal Saline - IV 100 mls/hr ASDIR OSIRIS Administration Insulin Aspart 0 units 02/28/19 16:30 03/01/19 11:45 Novolog Vial SQ 4 units ACHS OSIRIS Administration Protocol Insulin Detemir 8 units 02/28/19 22:00 02/28/19 21:47 Levemir Vial SQ 8 units HS OSIRIS Administration Sertraline HCl 25 mg 02/28/19 14:30 02/28/19 17:09 Zoloft - PO 25 mg DAILY OSIRIS Administration ASSESSMENT/PLAN This is a 78 year-old female with a PMH significant for CAD s/p stents x 2, Type II IDDM, and orthostatic hypotension. Admitted following a syncopal episode. Syncope --troponin neg x 3; ECG non-ischemic; telemetry monitoring no events; echo ordered --CT head unremarkable --afebrile, no leukocytosis; CXR unremarkable; UA negative; cultures pending ; observe off antibiotics Diastolic heart failure --03/01/19 Echo: LV systolic function normal, EF 60%, Grade II diastolic dysfunction; RV normal; mild TR; RVSP elevated --not on home diuretics Low volume state --overnight BP dropped and Cr bumped to 1.5 --given IV fluids BP stabilized, Cr back to 1.0 this morning Orthostatic hypotension Type II IDDM --has had several recent episodes of hypoglycemia --A1C 7.5 --Novolog sliding scale coverage Coronary artery disease s/p stents --continue ASA, Lipitor, labetolol Depression --continue Wellbutrin, clonazepam, sertraline FEN Fluids: Electrolytes: replete as indicated Nutrition: diabetic DVT prophylaxis: subq heparin Physical therapy Dispo: continues to require observation. Full code.
--- NOTE | 2019-03-01 15:37 | ECHO ---
Name: SUE GASTELUM Exam:Adult Echocardiogram Study Date: 03/01/2019 01:41 PM Age: 78 yrs Reason For Study: SYNCOPE Height: 67 in Weight: 123 lb BSA: 1.6 m2 MMode/2D Measurements & Calculations IVSd: 1.1 cm Ao root diam: 2.5 cm LVIDd: 3.7 cm LA dimension: 3.5 cm LVIDs: 2.4 cm LVPWd: 1.2 cm EDV(Teich): 59.0 ml LVOT diam: 2.0 cm ESV(Teich): 19.8 ml Doppler Measurements & Calculations MV E max eve: 109.3 cm/sec MV A max eve: 103.2 cm/sec MV dec slope: 632.4 cm/sec2 MV E/A: 1.1 Ao V2 max: 112.5 cm/sec LV V1 max P.7 mmHg Ao max P.1 mmHg LV V1 max: 96.6 cm/sec ERIBERTO(V,D): 2.7 cm2 TR max eve: 286.3 cm/sec PA V2 max: 89.0 cm/sec TR max P.8 mmHg PA max P.2 mmHg Procedure A complete two-dimensional transthoracic echocardiogram was performed (2D, M-mode, Doppler and color flow Doppler). Left Ventricle The left ventricular size, thickness and function are normal. Ejection Fraction = 60%. Diastolic dysf unction, Grade II (pseudonormalization pattern). Right Ventricle The right ventricle is normal in size and function. Atria Normal left and right atrial size and function. Mitral Valve The mitral valve is normal in structure and function. There is no mitral regurgitation noted. Tricuspid Valve The tricuspid valve is normal in structure and function. There is mild tricuspid regurgitation. Right ventricular systolic pressure is 38 mmhg. Aortic Valve The aortic valve is normal in structure and function. Pulmonic Valve The pulmonic valve is not well visualized. Great Vessels The aortic root is normal size. Normal aortic arch, descending and ascending aorta. Pericardium/Pleura There is no pericardial effusion. Interpretation Summary The left ventricular size, thickness and function are normal Diastolic dysfunction, Grade II (pseudonormalization pattern). The right ventricle is normal in size and function. There is mild tricuspid regurgitation. Right ventricular systolic pressure is 38 mmhg. Reymundo Gray 03/01/2019 03:36 PM
[2019-03-01] MEDS ORDERED: LABETALOL HCL 100 MG TABLET (FP) PO ONE (19:11)
[2019-03-01] MEDS ORDERED: INSULIN (NOVOLOG) ASPART 100 UNITS/ML 10ML VIAL ONE (21:36)
[2019-03-01] MEDS: ATORVASTATIN CA 80 MG TABLET (FP) PO SCH (21:41)
[2019-03-01] MEDS ORDERED: INSULIN (LEVEMIR) 100 UNITS/ML UNITS SQ SCH (22:00)
[2019-03-02] MEDS: HEPARIN NA (PORCINE) 5,000 UNITS/ML 1ML VIAL SQ SCH ×2 (02:04→10:01)
[2019-03-02 06:19] VITALS: TEMP 98.8
[2019-03-02 06:22] VITALS: BP 112/50; PULSE 79
[2019-03-02] MEDS ORDERED: INSULIN (LEVEMIR) 100 UNITS/ML UNITS SQ SCH (07:00)
[2019-03-02] MEDS: INSULIN (NOVOLOG) ASPART 100 UNITS/ML 10ML VIAL SQ SCH ×2 (07:40→11:40)
[2019-03-02] MEDS ORDERED: INSULIN (NOVOLOG) ASPART 100 UNITS/ML 10ML VIAL ONE (07:42)
--- NOTE | 2019-03-02 09:15 | DS ---
Physical Exam: SUBJECTIVE: Patient seen and examined at bedside. Voices no complaints. OBJECTIVE: Vital Signs Period Temp Pulse Resp BP Sys/Tolliver Pulse Ox Last 24 Hr 97.6 F-98.8 F 78-84 17-18 112-186/45-65 94-99 PHYSICAL EXAM GENERAL: The patient is awake, alert, and fully oriented, in no acute distress. Rambling thoughts and speech. LUNGS: Breath sounds equal, clear to auscultation bilaterally, no wheezes, no crackles, no accessory muscle use. HEART: Regular rate and rhythm, S1, S2 ABDOMEN: Soft, nontender, nondistended, normoactive bowel sounds EXTREMITIES: 2+ pulses, warm, well-perfused, no edema. NEUROLOGICAL: Cranial nerves II through XII grossly intact. Normal speech LABS Laboratory Results - last 24 hr 03/01/19 03/01/19 03/01/19 07:16 11:25 17:04 POC Glucometer 229 157 TSH 1.19 03/01/19 03/02/19 21:09 06:08 POC Glucometer 216 258 TSH HOSPITAL COURSE: Date of Admission:02/28/19 Date of Discharge: 03/02/19 Pre hospital course This is a 78 year-old female with a PMH significant for CAD s/p stents x 2, Type II IDDM, and orthostatic hypotension. Presented to the ED today after waking up on her bedroom floor. Patient did a fingerstick before bedtime and it was slightly low for her 118. She considered drinking some juice, but deferred and went to bed. She woke up during the night, went to the bathroom, urinated, and the next thing she remembers is waking up on the floor. She does not remember falling and she does not know how long she was on the floor. She called to her sister for help. The sister called EMS and when EMS arrived, patient's blood sugar was in the 50s. She was given peanut butter and juice with improvement in her glucose to 137 on arrival to the ED. Patient was seen in ED on 02/01/19 for a similar episode and was found to be hypoglycemic. Patient denies recent illness. Denies fever, sweats, chills. Denies nausea, vomiting, diarrhea. Complains of frequent urination for several months, and urgency for several weeks. ER course (1) Troponin neg x 1 (2) FS 137 on arrival Subsequent hospital course This is a 78 year-old female with a PMH significant for CAD s/p stents x 2, Type II IDDM, and orthostatic hypotension. Admitted following a syncopal episode. Syncope --troponin neg x 3; ECG non-ischemic; telemetry monitoring no events; ACS ruled out --CT head unremarkable --afebrile, no leukocytosis; CXR unremarkable; UA negative; cultures NGTD; observed off antibiotics Diastolic heart failure --03/01/19 Echo: LV systolic function normal, EF 60%, Grade II diastolic dysfunction; RV normal; mild TR; RVSP elevated --euvolemic, not on diuretics Orthostatic hypotension --BP stabilized after IV fluids Type II IDDM --A1C 7.5 --Novolog sliding scale, Levemir BID --reviewed home med regimen with Dr. Poppy Gilbert's office, discharged on same Coronary artery disease s/p stents --continued ASA, Lipitor, labetolol Depression --continued Wellbutrin, clonazepam, sertraline --discontinued Ambien; instructed family members patient should NOT take ambien Minutes to complete discharge: 35 Discharge Summary Reason For Visit: HYPOGLYCEMIA Current Active Problems Hypoglycemia (Acute) Syncope (Acute) Condition: Improved - Instructions Referrals: Zachary Porter MD [Primary Care Provider] - Disposition: HOME - Home Medications Comprehensive Discharge Medication List: Ambulatory Orders Atorvastatin Ca [Lipitor] 80 mg PO HS 02/01/19 Calcium Carbonate [Calcium] 600 mg PO BID 02/01/19 Clonazepam 1 mg PO BID 02/01/19 Insulin (Levemir) [Levemir Vial] 10 unit SQ DAILY 02/01/19 Insulin (Novolog) [Novolog] 0 units SQ ACHS 02/01/19 Labetalol HCl [Normodyne -] 100 mg PO BID 02/01/19 Zolpidem Tartrate [Ambien] 10 mg PO HS 02/01/19 Aspirin [Aspirin EC] 81 mg PO DAILY 02/28/19 Bupropion HCl [Bupropion HCl Sr] 150 mg PO BID 02/28/19 Insulin Detemir [Levemir Flextouch] 11 unit SQ HS 02/28/19 Sertraline HCl [Zoloft] 25 mg PO DAILY 02/28/19 This patient is new to me today: No Emergency Visit: Yes ED Registration Date: 02/28/19 Care time: The patient presented to the Emergency Department on the above date and was hospitalized for further evaluation of their emergent condition. Critical Care patient: No - Discharge Referral Referred to [facility] No
[2019-03-02] MEDS: clonazePAM 0.5 MG TABLET PO SCH (10:00)
[2019-03-02] MEDS: ASPIRIN COATED 81 MG TABLET.EC PO SCH (10:00)
[2019-03-02] MEDS: SERTRALINE HCL 25 MG TABLET (FP) PO SCH (10:00)
[2019-03-02] MEDS ORDERED: LABETALOL HCL 100 MG TABLET (FP) PO SCH (10:00)
== END 2019-03-02 14:20 | disposition home or self-care (01) ==
LOC: FER 09:45 → FM/S 13:28
PROVIDERS: ADMIT Internal Medicine; ATTEND Nurse Practitioner Acute Care
PROC: 3E013VG Introduction of Insulin into Subcutaneous Tissue, Percutaneous Approach (ICD-10-PCS; principal; 2019-02-28)
PROC: 3E013GC Introduction of Other Therapeutic Substance into Subcutaneous Tissue, Percutaneous Approach (ICD-10-PCS; 2019-02-28)
PROC: 3E0337Z Introduction of Electrolytic and Water Balance Substance into Peripheral Vein, Percutaneous Approach (ICD-10-PCS; 2019-02-28)
DX: E11.649 Type 2 diabetes mellitus with hypoglycemia without coma (principal); E86.9 Volume depletion, unspecified; I95.1 Orthostatic hypotension; I50.30 Unspecified diastolic (congestive) heart failure; I25.10 Atherosclerotic heart disease of native coronary artery without angina pectoris; Z95.5 Presence of coronary angioplasty implant and graft; F32.9 Major depressive disorder, single episode, unspecified; Z79.84 Long term (current) use of oral hypoglycemic drugs; Z87.891 Personal history of nicotine dependence
CPT/HCPCS: 36415; 70450-TC; 71045-TC-FY; 76775-TC; 80048; 80053; 81003; 81015; 82550; 82553; 82565; 82803; 82962; 83036; 83605; 83690; 83735; 83874; 83930; 83935; 84100; 84300; 84443; 84484; 84550; 85025; 85610; 85730; 87040; 87086; 93005; 93306-TC; 96360; 96372; 97116-GP; 97161-GP; 99284-25; G0378; J1644; J7030

== ENCOUNTER 2020-11-25 04:00 | Inpatient (IN) | payer OTHER, MEDICARE ==
[2020-11-25] MEDS ORDERED: DEXTROSE 50%-WATER 25 GM/50 ML DISP.SYRIN ONE (04:12)
[2020-11-25] MEDS ORDERED: PIPERACILLIN/TAZOBACTAM 4.5 GM VIAL IVPB ONE (04:25)
[2020-11-25] MEDS ORDERED: VANCOMYCIN 1,000 MG in DEXTROSE 5%-WATER - 250 ML IVPB ONE (04:25)
[2020-11-25] MEDS ORDERED: SODIUM CHLORIDE 0.9% 1000 ML INFUS.BAG IV ONE (04:28)
[2020-11-25] MEDS ORDERED: PIPERACILLIN/TAZOB 4.5 GM 4.5 GM/100 ML BAG IVPB ONE (04:43)
[2020-11-25] MEDS ORDERED: VANCOMYCIN 1 GRAM (PRE-DOCKED) 1,000 MG/250 ML BAG IVPB ONE (04:43)
[2020-11-25 05:14] LABS: EOS % 1.1 % (0-4.5); HEMATOCRIT 35.2 % (32.4-45.2); HEMOGLOBIN 11.9 GM/dL (10.7-15.3); LYMPH % 15.8 % (8-40); MCH 31.2 pg (25.7-33.7); MCHC 33.7 g/dl (32.0-36.0); MEAN CELL VOLUME 92.7 fl (80-96); MEAN PLT VOLUME 7.6 fl (7.5-11.1); MONO % 6.5 % (3.8-10.2); NEUT % 75.6 % (42.8-82.8); PLATELET COUNT 254 K/MM3 (134-434); RDW 14.7 % (11.6-15.6); WHITE BLOOD COUNT 5.9 K/mm3 (4.0-10.0)
[2020-11-25 05:16] LABS: CHLORIDE 106 mmol/L (98-107); SODIUM 141 mmol/L (136-145)
[2020-11-25 05:19] LABS: ALBUMIN 3.6 g/dl (3.4-5.0); ANION GAP 5 MMOL/L (8-16); BLOOD UREA NITROGEN 34.2 mg/dL (7-18); CO2 31 mmol/L (21-32)
[2020-11-25 05:22] LABS: CREATININE 1.4 mg/dL (0.55-1.3); INR 0.82 (0.83-1.09); PROTHROMBIN TIME (PATIENT) 10.2 SEC (9.7-13.0); SGOT/AST 26 U/L (15-37); SGPT/ALT 30 U/L (13-61)
[2020-11-25 05:24] LABS: BILIRUBIN,TOTAL 0.5 mg/dL (0.2-1); TOT PROT 6.8 g/dl (6.4-8.2)
[2020-11-25 05:25] LABS: ALK PHOS 88 U/L (45-117)
[2020-11-25 05:26] LABS: ACTIVATED PTT 20.1 SECONDS (25.2-36.5)
[2020-11-25 07:29] LABS: GLUCOSE,RANDOM 32 mg/dL (74-106)
[2020-11-25 07:52] LABS: URINE APPEARANCE CLEAR; URINE BILIRUBIN NEGATIVE (NEGATIVE); URINE COLOR YELLOW; URINE GLUCOSE (UA) NEGATIVE (NEGATIVE); URINE KETONE NEGATIVE (NEGATIVE); URINE LEUK ESTERASE NEGATIVE (NEGATIVE); URINE NITRITE NEGATIVE (NEGATIVE); URINE PROTEIN NEGATIVE (NEGATIVE); URINE UROBILINOGEN 0.2 mg/dL (0.2-1.0)
[2020-11-25] MEDS ORDERED: SODIUM CHLORIDE 0.9% 500 ML INFUS.BAG IV ONE (10:36)
[2020-11-25] MEDS ORDERED: ACETAMINOPHEN 325 MG TABLET (FP) PO PRN (12:18)
[2020-11-25] MEDS ORDERED: LABETALOL HCL 200 MG TABLET (FP) PO ONE (14:37)
[2020-11-25] MEDS ORDERED: LISINOPRIL 20 MG TABLET PO ONE (14:37)
[2020-11-25] MEDS ORDERED: INSULIN SLIDING SCALE (NOVOLOG) 1 VIAL SQ SCH ×2 (16:30)
[2020-11-25] MEDS: INSULIN (LEVEMIR) 100 UNITS/ML UNITS SQ SCH (16:52)
[2020-11-25] MEDS: INSULIN SLIDING SCALE (NOVOLOG) 1 VIAL SQ SCH ×2 (16:53→22:31)
[2020-11-25] MEDS: SODIUM CHLORIDE 0.45% 1,000 ML IV SCH (18:02)
[2020-11-25 18:34] VITALS: BMI 18.3
[2020-11-25] MEDS: LABETALOL HCL 200 MG TABLET (FP) PO SCH (22:25)
[2020-11-25] MEDS: HEPARIN NA (PORCINE) 5,000 UNITS/ML 1ML VIAL SQ SCH (22:25)
[2020-11-25] MEDS: SENNOSIDES 8.6MG TABLET (FP) PO SCH (22:26)
[2020-11-25] MEDS: ATORVASTATIN CA 80 MG TABLET (FP) PO SCH (22:26)
[2020-11-26] MEDS: SODIUM CHLORIDE 0.45% 1,000 ML IV SCH ×2 (06:42→17:27)
[2020-11-26] MEDS: INSULIN SLIDING SCALE (NOVOLOG) 1 VIAL SQ SCH ×4 (06:47→17:44)
[2020-11-26 09:45] LABS: HEMATOCRIT 28.1 % (32.4-45.2); HEMOGLOBIN 9.7 GM/dL (10.7-15.3); MCH 31.7 pg (25.7-33.7); MCHC 34.4 g/dl (32.0-36.0); MEAN PLT VOLUME 7.9 fl (7.5-11.1); PLATELET COUNT 176 K/MM3 (134-434); RBC 3.05 M/mm3 (3.60-5.2); RDW 14.8 % (11.6-15.6); WHITE BLOOD COUNT 3.9 K/mm3 (4.0-10.0)
[2020-11-26] MEDS: MULTIVITAMINS (DAILY MVI) TABLET (FP) PO SCH (09:57)
[2020-11-26] MEDS: PANTOPRAZOLE 40 MG TABLET PO SCH (09:57)
[2020-11-26] MEDS: LABETALOL HCL 200 MG TABLET (FP) PO SCH ×2 (09:57→21:21)
[2020-11-26] MEDS: ESCITALOPRAM OXALATE 10 MG TABLET PO SCH (09:58)
[2020-11-26] MEDS: INSULIN (LEVEMIR) 100 UNITS/ML UNITS SQ SCH (09:58)
[2020-11-26] MEDS: HEPARIN NA (PORCINE) 5,000 UNITS/ML 1ML VIAL SQ SCH ×2 (09:58→21:20)
[2020-11-26] MEDS ORDERED: LISINOPRIL 20 MG TABLET PO SCH (10:00)
[2020-11-26 10:23] LABS: CALCIUM 8.3 mg/dL (8.5-10.1)
[2020-11-26 10:28] LABS: BILIRUBIN,TOTAL 0.6 mg/dL (0.2-1); TOT PROT 5.6 g/dl (6.4-8.2)
[2020-11-26] MEDS ORDERED: hydrALAZINE HCL 20 MG/ML VIAL IVPB ONE (17:48)
[2020-11-26] MEDS ORDERED: PT OWN MED DRAWER 7, Y5N ONE (18:01)
[2020-11-26] MEDS: ATORVASTATIN CA 80 MG TABLET (FP) PO SCH (21:20)
[2020-11-26] MEDS: LISINOPRIL 20 MG TABLET PO SCH (21:21)
[2020-11-26] MEDS: SENNOSIDES 8.6MG TABLET (FP) PO SCH (21:21)
[2020-11-26] MEDS ORDERED: INSULIN SLIDING SCALE (NOVOLOG) 1 VIAL SQ SCH (22:00)
[2020-11-26] MEDS ORDERED: MELATONIN 5 MG TABLETS PO ONE (23:45)
[2020-11-27] MEDS: INSULIN SLIDING SCALE (NOVOLOG) 1 VIAL SQ SCH ×4 (06:51→22:48)
[2020-11-27] MEDS ORDERED: INSULIN (LEVEMIR) 100 UNITS/ML UNITS SQ SCH (07:00)
[2020-11-27] MEDS: LABETALOL HCL 200 MG TABLET (FP) PO SCH ×2 (09:50→21:55)
[2020-11-27] MEDS: LISINOPRIL 20 MG TABLET PO SCH ×2 (09:51→21:55)
[2020-11-27] MEDS: ESCITALOPRAM OXALATE 10 MG TABLET PO SCH (09:51)
[2020-11-27] MEDS: PANTOPRAZOLE 40 MG TABLET PO SCH (09:52)
[2020-11-27] MEDS: MULTIVITAMINS (DAILY MVI) TABLET (FP) PO SCH (09:52)
[2020-11-27] MEDS: HEPARIN NA (PORCINE) 5,000 UNITS/ML 1ML VIAL SQ SCH ×2 (09:58→21:54)
[2020-11-27] MEDS: clonazePAM 0.5 MG TABLET PO PRN ×2 (11:07→18:23)
[2020-11-27 12:34] LABS: GLUCOSE,RANDOM 473 mg/dL (74-106)
[2020-11-27] MEDS ORDERED: INSULIN SLIDING SCALE (NOVOLOG) 1 VIAL SQ SCH (17:01)
[2020-11-27] MEDS: SENNOSIDES 8.6MG TABLET (FP) PO SCH (21:54)
[2020-11-27] MEDS: ATORVASTATIN CA 80 MG TABLET (FP) PO SCH (21:54)
[2020-11-27] MEDS: ZOLPIDEM TARTRATE 5 MG TABLET PO PRN (22:38)
[2020-11-28] MEDS ORDERED: HALOPERIDOL LACTATE 5 MG/ML IM ONE (00:58)
[2020-11-28] MEDS: INSULIN SLIDING SCALE (NOVOLOG) 1 VIAL SQ SCH ×3 (06:03→16:23)
[2020-11-28] MEDS: INSULIN (LEVEMIR) 100 UNITS/ML UNITS SQ SCH (06:24)
[2020-11-28] MEDS ORDERED: INSULIN SLIDING SCALE (NOVOLOG) 1 VIAL SQ SCH (07:00)
[2020-11-28 08:49] LABS: HEMATOCRIT 26.9 % (32.4-45.2); HEMOGLOBIN 9.1 GM/dL (10.7-15.3); MCH 31.6 pg (25.7-33.7); MCHC 33.7 g/dl (32.0-36.0); MEAN CELL VOLUME 93.8 fl (80-96); MEAN PLT VOLUME 8.2 fl (7.5-11.1); PLATELET COUNT 163 K/MM3 (134-434); RBC 2.87 M/mm3 (3.60-5.2); RDW 14.7 % (11.6-15.6)
[2020-11-28 09:10] LABS: BLOOD UREA NITROGEN 29.2 mg/dL (7-18); CALCIUM 8.4 mg/dL (8.5-10.1)
[2020-11-28 09:14] LABS: CREATININE 1.2 mg/dL (0.55-1.3)
[2020-11-28] MEDS: HEPARIN NA (PORCINE) 5,000 UNITS/ML 1ML VIAL SQ SCH ×2 (10:54→21:58)
[2020-11-28] MEDS: MULTIVITAMINS (DAILY MVI) TABLET (FP) PO SCH (10:54)
[2020-11-28] MEDS: PANTOPRAZOLE 40 MG TABLET PO SCH (10:55)
[2020-11-28] MEDS: ESCITALOPRAM OXALATE 10 MG TABLET PO SCH (10:55)
[2020-11-28] MEDS: LABETALOL HCL 200 MG TABLET (FP) PO SCH ×2 (11:34→21:59)
[2020-11-28] MEDS: LISINOPRIL 20 MG TABLET PO SCH ×2 (11:41→21:59)
[2020-11-28] MEDS: SENNOSIDES 8.6MG TABLET (FP) PO SCH (21:58)
[2020-11-28] MEDS: ATORVASTATIN CA 80 MG TABLET (FP) PO SCH (21:58)
[2020-11-28] MEDS ORDERED: INSULIN (NOVOLOG) ASPART 100 UNITS/ML 10ML VIAL ONE (22:01)
[2020-11-28] MEDS ORDERED: INSULIN (LEVEMIR) 100 UNITS/ML UNITS SQ ONE (22:01)
[2020-11-28] MEDS: clonazePAM 0.5 MG TABLET PO PRN (22:04)
[2020-11-28] MEDS: ZOLPIDEM TARTRATE 5 MG TABLET PO PRN (22:04)
[2020-11-29] MEDS ORDERED: LISINOPRIL 20 MG TABLET PO ONE (05:55)
[2020-11-29] MEDS: INSULIN SLIDING SCALE (NOVOLOG) 1 VIAL SQ SCH ×3 (06:26→18:16)
[2020-11-29] MEDS: INSULIN (LEVEMIR) 100 UNITS/ML UNITS SQ SCH (06:27)
[2020-11-29 08:39] LABS: BASO % 1.8 % (0-2.0); EOS % 1.5 % (0-4.5); HEMOGLOBIN 9.6 GM/dL (10.7-15.3); LYMPH % 27.3 % (8-40); MCH 31.8 pg (25.7-33.7); MCHC 34.4 g/dl (32.0-36.0); MEAN CELL VOLUME 92.3 fl (80-96); MEAN PLT VOLUME 7.9 fl (7.5-11.1); MONO % 7.1 % (3.8-10.2); NEUT % 62.3 % (42.8-82.8); PLATELET COUNT 165 K/MM3 (134-434); RBC 3.03 M/mm3 (3.60-5.2); RDW 14.6 % (11.6-15.6); WHITE BLOOD COUNT 3.1 K/mm3 (4.0-10.0)
[2020-11-29 08:57] LABS: ALBUMIN 2.8 g/dl (3.4-5.0); BLOOD UREA NITROGEN 21.5 mg/dL (7-18); CALCIUM 8.1 mg/dL (8.5-10.1)
[2020-11-29 09:00] LABS: CREATININE 1.1 mg/dL (0.55-1.3)
[2020-11-29 09:02] LABS: BILIRUBIN,TOTAL 0.5 mg/dL (0.2-1); TOT PROT 5.4 g/dl (6.4-8.2)
[2020-11-29] MEDS: LABETALOL HCL 200 MG TABLET (FP) PO SCH ×2 (10:40→18:20)
[2020-11-29] MEDS: HEPARIN NA (PORCINE) 5,000 UNITS/ML 1ML VIAL SQ SCH ×2 (10:40→21:31)
[2020-11-29] MEDS: ESCITALOPRAM OXALATE 10 MG TABLET PO SCH (10:40)
[2020-11-29] MEDS: LISINOPRIL 20 MG TABLET PO SCH ×2 (10:40→18:21)
[2020-11-29] MEDS: PANTOPRAZOLE 40 MG TABLET PO SCH (10:40)
[2020-11-29] MEDS: MULTIVITAMINS (DAILY MVI) TABLET (FP) PO SCH (10:40)
[2020-11-29] MEDS ORDERED: hydrALAZINE HCL 25 MG TABLET (FP) PO SCH (12:00)
[2020-11-29] MEDS: SENNOSIDES 8.6MG TABLET (FP) PO SCH ×2 (21:31→21:42)
[2020-11-29] MEDS: ZOLPIDEM TARTRATE 5 MG TABLET PO PRN (21:31)
[2020-11-29] MEDS: hydrALAZINE HCL 25 MG TABLET (FP) PO SCH (21:31)
[2020-11-29] MEDS: ATORVASTATIN CA 80 MG TABLET (FP) PO SCH (21:31)
[2020-11-30] MEDS: LISINOPRIL 20 MG TABLET PO SCH ×3 (02:01→22:58)
[2020-11-30] MEDS: LABETALOL HCL 200 MG TABLET (FP) PO SCH ×4 (02:01→22:58)
[2020-11-30] MEDS: INSULIN (LEVEMIR) 100 UNITS/ML UNITS SQ SCH (06:31)
[2020-11-30] MEDS: hydrALAZINE HCL 25 MG TABLET (FP) PO SCH ×3 (06:31→22:58)
[2020-11-30] MEDS: INSULIN SLIDING SCALE (NOVOLOG) 1 VIAL SQ SCH ×3 (06:31→16:13)
[2020-11-30] MEDS ORDERED: PT OWN MED DRAWER 7, Y5N ONE (09:47)
[2020-11-30] MEDS: clonazePAM 0.5 MG TABLET PO PRN (09:58)
[2020-11-30] MEDS: ESCITALOPRAM OXALATE 10 MG TABLET PO SCH (09:59)
[2020-11-30] MEDS: PANTOPRAZOLE 40 MG TABLET PO SCH (09:59)
[2020-11-30] MEDS: MULTIVITAMINS (DAILY MVI) TABLET (FP) PO SCH (09:59)
[2020-11-30] MEDS: HEPARIN NA (PORCINE) 5,000 UNITS/ML 1ML VIAL SQ SCH ×2 (10:21→22:59)
[2020-11-30] MEDS ORDERED: INSULIN (NOVOLOG) ASPART 100 UNITS/ML 10ML VIAL ONE (11:29)
[2020-11-30] MEDS: clonazePAM 0.5 MG TABLET PO SCH (22:58)
[2020-11-30] MEDS: ATORVASTATIN CA 80 MG TABLET (FP) PO SCH (22:58)
[2020-11-30] MEDS: SENNOSIDES 8.6MG TABLET (FP) PO SCH (22:58)
[2020-12-01] MEDS: ZOLPIDEM TARTRATE 5 MG TABLET PO ONE ×2 (02:02→11:17)
[2020-12-01] MEDS: hydrALAZINE HCL 25 MG TABLET (FP) PO SCH ×2 (05:42→13:07)
[2020-12-01] MEDS: LABETALOL HCL 200 MG TABLET (FP) PO SCH ×2 (05:42→13:07)
[2020-12-01] MEDS: INSULIN (LEVEMIR) 100 UNITS/ML UNITS SQ SCH (06:08)
[2020-12-01] MEDS: INSULIN SLIDING SCALE (NOVOLOG) 1 VIAL SQ SCH ×3 (06:08→16:46)
[2020-12-01] MEDS ORDERED: clonazePAM 0.5 MG TABLET PO SCH (07:00)
[2020-12-01] MEDS: ESCITALOPRAM OXALATE 10 MG TABLET PO SCH (11:17)
[2020-12-01] MEDS: HEPARIN NA (PORCINE) 5,000 UNITS/ML 1ML VIAL SQ SCH (11:17)
[2020-12-01] MEDS: PANTOPRAZOLE 40 MG TABLET PO SCH (11:18)
[2020-12-01] MEDS: MULTIVITAMINS (DAILY MVI) TABLET (FP) PO SCH (11:18)
[2020-12-01] MEDS: LISINOPRIL 20 MG TABLET PO SCH (11:19)
[2020-12-01] MEDS: clonazePAM 0.5 MG TABLET PO SCH (19:54)
[2020-12-01 20:29] VITALS: BP 110/59; PULSE 80; TEMP 98.2
== END 2020-12-01 20:15 | DRG 638 ==
LOC: JER 04:00 → JERBED 05:11 → J5S 13:15
PROVIDERS: ADMIT Internal Medicine; ATTEND Internal Medicine
DX: E11.649 Type 2 diabetes mellitus with hypoglycemia without coma (principal); R64 Cachexia; Z68.1 Body mass index [BMI] 19.9 or less, adult; I10 Essential (primary) hypertension; F32.9 Major depressive disorder, single episode, unspecified; F41.9 Anxiety disorder, unspecified; I25.10 Atherosclerotic heart disease of native coronary artery without angina pectoris; E11.51 Type 2 diabetes mellitus with diabetic peripheral angiopathy without gangrene; R55 Syncope and collapse
CPT/HCPCS: 36415; 70450-TC; 71045-TC-FY; 80048; 80053; 81003; 82533; 82947; 82962; 83036; 83605; 84439; 84443; 84484; 85025; 85027; 85610; 85730; 87040; 87086; 93005; 93010; 97116-GP; 97162-GP; 99285-25; C9803; J1644; U0003; U0005

== ENCOUNTER 2021-01-21 09:05 | Emergency (ER) | payer OTHER, MEDICARE ==
[2021-01-21 09:19] VITALS: BP 0/0; PULSE 0; BMI 18.3
== END 2021-01-21 09:30 | disposition expired ==
LOC: FER 09:05
PROC: 0BH17EZ Insertion of Endotracheal Airway into Trachea, Via Natural or Artificial Opening (ICD-10-PCS; principal; 2021-01-21)
DX: I46.9 Cardiac arrest, cause unspecified (principal)
CPT/HCPCS: 31500; 99285-25